=== PATIENT | female | born 1985 | race Caucasian/White ===

== ENCOUNTER → 2016-11-26 | Outpatient (CLI) | payer OTHER ==
--- NOTE | 2016-11-27 08:39 | ECHOF ---
Referral Reason:R00.2 Palpitations MEASUREMENTS -------- HEIGHT: 165.1 cm WEIGHT: 77.1 kg BP: IVSd: 1.1 cm (0.6 - 1.1) LVIDd: 4.5 cm (3.9 - 5.3) LVPWd: 0.9 cm (0.6 - 1.1) IVSs: 1.3 cm LVIDs: 2.5 cm LVPWs: 1.6 cm Ao Diam: 2.9 cm (2.0 - 3.7) AV Cusp: 1.9 cm (1.5 - 2.6) LA Diam: 3.0 cm (2.7 - 3.8) MV EXCURSION: 15.523 mm (> 18.000) MV EF SLOPE: 120 mm/s (70 - 150) EPSS: 0.3 cm MV E Milton: 0.70 m/s MV DecT: 123 ms MV A [place]: 0.90 m/s MV E/A Ratio: 0.79 RAP: 5.00 mmHg RVSP: 23.42 mmHg FINDINGS -------- Sinus rhythm. This was a technically good study. Left ventricular wall thickness is normal. Overall left ventricular systolic function is normal with, an EF between 55 - 60 %. The right ventricle is normal in size and function. The left atrium is normal in size. The right atrium is normal in size. The aortic valve is trileaflet, and appears structurally normal. No aortic stenosis or regurgitation. Mild mitral regurgitation is present. Mild tricuspid regurgitation present. The right ventricular systolic pressure, as measured by Doppler, is 23.42mmHg. Pulmonic valve appears structurally normal. The aortic root size is normal. The pericardium is normal. CONCLUSIONS -------- 1. Sinus rhythm. 2. Mild tricuspid regurgitation present. 3. The right ventricular systolic pressure, as measured by Doppler, is 23.42mmHg. 4. Pulmonic valve appears structurally normal. 5. The aortic root size is normal. 6. The pericardium is normal. 7. This was a technically good study. 8. Left ventricular wall thickness is normal. 9. Overall left ventricular systolic function is normal with, an EF between 55 - 60 %. 10. The right ventricle is normal in size and function. 11. The left atrium is normal in size. 12. The right atrium is normal in size. 13. The aortic valve is trileaflet, and appears structurally normal. No aortic stenosis or regurgitation. 14. Mild mitral regurgitation is present. RETAIL STORE CLERK: Ned Cadet RDCS
== END | disposition home or self-care (01) ==
LOC: RADECHMAIN 14:32
PROVIDERS: ATTEND Family Medicine
DX: I08.1 Rheumatic disorders of both mitral and tricuspid valves (principal)
CPT/HCPCS: 93306

== ENCOUNTER → 2017-12-06 | Outpatient (CLI) | payer OTHER ==
--- NOTE | 2017-12-06 14:06 | MR ---
EXAMINATION TYPE: MR angio head wo con DATE OF EXAM: 12/06/2017 COMPARISON: Prior MRA brain September 28, 2016 and older study May 18, 2016 HISTORY: Cerebral aneurysm TECHNIQUE: Time of flight images focusing on the [place] were performed without contrast.. 2-D and 3-D postprocessing imaging is performed. FINDINGS: There is persistent codominant vertebral basilar system. There is no significant focal sten osis or aneurysmal change in the posterior circulation. There are small caliber but patent posterior to indicating arteries redemonstrated bilaterally. Images of the anterior circulation redemonstrate focal aneurysm likely at anterior communicating fred ry origin measuring roughly 2.0 x 1.8 mm axial image 73 along the medial aspect of the right A1 segme nt. There is also aneurysmal prominence of the left anterior cerebral artery at this level measuring up to 2.6 mm axial image 76, this is not significantly changed in appearance from prior. Middle cereb ral artery show no aneurysmal change. No significant stenosis is present. IMPRESSION: Stable findings, suspect small aneurysm along course of short segment anterior communicat ing artery. Additional cylindrical prominence possible aneurysm of the left anterior cerebral artery near this level is felt present also stable.
== END | disposition home or self-care (01) ==
LOC: RADMRIMAIN 12:08
PROVIDERS: ATTEND Family Medicine
DX: I67.1 Cerebral aneurysm, nonruptured (principal)
CPT/HCPCS: 70544

== ENCOUNTER → 2019-11-22 | Outpatient (CLI) | payer OTHER ==
--- NOTE | 2019-11-22 09:02 | US ---
EXAMINATION TYPE: US abdomen limited DATE OF EXAM: 11/22/2019 COMPARISON: 07/13/2012 CLINICAL HISTORY: R10.11 R upper quad pain. RUQ pain, some nausea noted after evening meal EXAM MEASUREMENTS: Liver Length: 15.2 cm Gallbladder Wall: 0.1 cm CBD: 0.5 cm Right Kidney: 11.4 x 5.8 x 4.1 cm Pancreas: wnl Liver: hyperechoic, oval, solid focus noted in right lobe = 1.5 x 1.4 x 1.2cm and suggests hemangiom a Gallbladder: wnl Evidence for sonographic Magallon's sign: no CBD: wnl Right Kidney: wnl IMPRESSION: 1. No sonographic evidence of cholelithiasis nor acute cholecystitis. 2. Solitary 1.5 cm hepatic lesion demonstrates no interval growth from the ultrasound of 2012 compati ble with a benign hemangioma.
== END | disposition home or self-care (01) ==
LOC: RADUSWWP 07:03
PROVIDERS: ATTEND Family Medicine
DX: K76.9 Liver disease, unspecified (principal)
CPT/HCPCS: 76705

== ENCOUNTER → 2019-11-29 | Outpatient (CLI) | payer OTHER ==
--- NOTE | 2019-11-29 08:46 | MR ---
EXAMINATION TYPE: MR angio head wo con DATE OF EXAM: 11/29/2019 COMPARISON: MRA head dated 12/06/2017 HISTORY: Recheck cerebral aneurysm TECHNIQUE: Time of flight images focusing on the [place] were performed without contrast.. 2-D and 3-D postprocessing imaging is performed. FINDINGS: Vertebral arteries are codominant. Vertebrobasilar system is patent and unremarkable. No si gnificant focal stenosis or aneurysmal change in the posterior circulation. Posterior communicating a rtery is are patent bilaterally. 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 There is also unchanged promin ence of the distal left A1 segment as it meets the intercommunicating artery measuring 2.6 cm on imag e 83. Anterior cerebral arteries and middle cerebral arteries are otherwise unremarkable. 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
== END | disposition home or self-care (01) ==
LOC: RADMRIMAIN 06:57
PROVIDERS: ATTEND Family Medicine
DX: I67.1 Cerebral aneurysm, nonruptured (principal)
CPT/HCPCS: 70544

== ENCOUNTER → 2020-12-12 | Outpatient (CLI) | payer OTHER ==
--- NOTE | 2020-12-12 11:41 | MR ---
EXAMINATION TYPE: MR brain wo/w con DATE OF EXAM: 12/12/2020 COMPARISON: 05/18/2016 HISTORY: Migraines / Recheck Aneurysm TECHNIQUE: Multiplanar, multisequence images of the brain and brainstem is performed without and with IV contras t, utilizing 9 mL intravenous Gadavist . FINDINGS: Diffusion weighted images demonstrate no evidence of a recent infarct or other diffusion ab normality. There is no extra-axial fluid collection or significant white matter signal abnormality. The ventricular system and cisternal spaces are normal in size and appearance. The brain volume is age appropriate. Midline structures demonstrate normal morphology. The craniocervical junction appears within normal limits. Post contrast images demonstrate no abnormal enhancement. The dural venous sinuses appear pa tent. Changes of chronic sinusitis and nasal septal deviation noted. Orbits are symmetric. Prominent signal void corresponds the patient's history of anterior communicating artery aneurysm. There is a 7 mm posterior nasopharyngeal nodule paramedian to the left. IMPRESSION: 1. Prominent signal void anterior communicating artery compatible with the patient's history of aneur ysm. 2. Posterior nasopharyngeal nodule does not meet the criteria of a simple cyst and could be correlate d with ENT.
== END | disposition home or self-care (01) ==
LOC: RADMRIMAIN 09:30
PROVIDERS: ATTEND Family Medicine
DX: G43.909 Migraine, unspecified, not intractable, without status migrainosus (principal)
CPT/HCPCS: 70553

== ENCOUNTER → 2020-12-12 | Outpatient (CLI) | payer OTHER ==
[2020-12-12 19:22] LABS: Basophils # (A) 0.06 X 10*3/uL (0.00-0.10); Basophils % (A) 0.9 %; Eosinophils % (A) 1.4 %; HCT 44.5 % (37.2-46.3); HGB 14.6 g/dL (12.0-15.0); Lymphocytes % (A) 34.2 %; MCH 29.6 pg (27.0-32.0); MCHC 32.8 g/dL (32.0-37.0); MCV 90.3 fL (80.0-97.0); Mean Platelet Volume 10.5 fL (9.5-12.2); Monocytes # (A) 0.56 X 10*3/uL (0.20-1.00); Neutrophils # (A) 3.88 X 10*3/uL (1.80-7.70); Neutrophils % (A) 55.2 %; Platelet Count 356 X 10*3/uL (140-440); RBC 4.93 X 10*6/uL (4.10-5.20); RDW 12.7 % (11.5-14.5); WBC 7.02 X 10*3/uL (4.50-10.00)
[2020-12-12 19:45] LABS: Anion Gap 5.1 mmol/L (4.00-12.00); BUN/Creat Ratio 17.14 Ratio (12.00-20.00); Calcium 9.4 mg/dL (8.7-10.3); Carbon Dioxide 26.9 mmol/L (21.6-31.8); Chol/HDL Ratio 3.11; Potassium 4.6 mmol/L (3.5-5.5)
[2020-12-12 20:17] LABS: Hemoglobin A1C 4.5 % (4.0-6.0)
== END | disposition home or self-care (01) ==
LOC: LABWHC1 10:59
PROVIDERS: ATTEND Family Medicine
DX: Z00.00 Encounter for general adult medical examination without abnormal findings (principal); Z20.822 Contact with and (suspected) exposure to COVID-19; E66.9 Obesity, unspecified
CPT/HCPCS: 36415; 80048; 80061; 82306; 83036; 84439; 84443; 84450; 84460; 85025; 86769

== ENCOUNTER → 2020-12-12 | Outpatient (CLI) | payer OTHER ==
--- NOTE | 2020-12-12 11:33 | MR ---
EXAMINATION TYPE: MR angio head wo/w con DATE OF EXAM: 12/12/2020 COMPARISON: 11/29/2019 HISTORY: Migraines / Recheck Aneurysm TECHNIQUE: Time of flight images focusing on the [place] were performed utilizing 9 mL intra venous Gadavist gadolinium contrast. FINDINGS: Vertebral arteries are codominant. Vertebrobasilar system is patent and unremarkable. No significant focal stenosis or aneurysmal change in the posterior circulation. Posterior communicating artery is a re patent bilaterally. saccular aneurysm of the anterior communicating artery measures approximately 2.1 x 2.0 mm, similar t o prior measurements of 2.0 x 1.8 mm. There is also unchanged prominence of the distal left A1 segmen t as it meets the intercommunicating artery measuring 2.6 cm . Anterior cerebral arteries and middle cerebral arteries are otherwise unremarkable. Limited imaging of the neck demonstrates the visualized vertebral arteries to be symmetric in the visualized common carotid arteries to be patent. Assessmen t of the bifurcation of the carotid arteries is nondiagnostic. IMPRESSION: 1. 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 2. There is a 6 mm nasopharyngeal nodule paramedian to the left recommend ENT consultation.
== END | disposition home or self-care (01) ==
LOC: RADMRIMAIN 09:36
PROVIDERS: ATTEND Neurological Surgery
DX: I67.1 Cerebral aneurysm, nonruptured (principal); R22.9 Localized swelling, mass and lump, unspecified
CPT/HCPCS: 70546; A9585

== ENCOUNTER → 2022-11-12 | Outpatient (CLI) | payer OTHER ==
--- NOTE | 2022-11-13 04:43 | MR ---
EXAMINATION TYPE: MR angio head wo/w con DATE OF EXAM: 11/12/2022 COMPARISON: 12/12/2020 HISTORY: Aneurysm follow up. CONTRAST: Standard multiplanar, multisequence MRI departmental protocol images were obtained without contrast a nd with 9.5 mL intravenous Gadavist gadolinium contrast. There is arterial flow in the anterior middle and posterior cerebral arteries bilaterally. There is a rterial flow in the vertebrobasilar artery system. There is arterial flow in both distal internal car otid arteries. There is minimal fusiform ectasia of the left anterior cerebral artery distal to the a nterior communicating artery. I do not see a definite aneurysm. No mass effect. No evidence of hemody namic arterial stenosis. IMPRESSION: Ectasia of the left anterior cerebral artery compared to the right that is distal to the anterior com municating artery. This appears unchanged compared to old exam. No aneurysm seen..
--- NOTE | 2022-11-13 04:46 | MR ---
EXAMINATION TYPE: MR brain wo/w con DATE OF EXAM: 11/12/2022 COMPARISON: 12/12/2020 HISTORY: Aneurysm follow up. CONTRAST: Standard multiplanar, multisequence MRI departmental protocol images were obtained without contrast a nd with 9.5 mL intravenous Gadavist gadolinium contrast. Ventricles have normal size. There is no mass effect or midline shift. No sign of intracranial hemorr jimenez. The davila-white matter structures have normal signal pattern. No evidence of cerebral edema. Dif fusion images show no evidence of an acute infarct. The brainstem is intact. Cerebellum is intact. No evidence of orbital mass. Corpus callosum appears normal. Sella turcica is normal. The contrast images show no pathologic enhancement there is normal enhancement of the venous sinuses. IMPRESSION: Normal MR scan of the brain. No change.
== END | disposition home or self-care (01) ==
LOC: RADMRIMAIN 18:30
PROVIDERS: ATTEND Family Medicine
DX: I67.1 Cerebral aneurysm, nonruptured (principal)
CPT/HCPCS: 70546; 70553; A9585

== ENCOUNTER → 2023-02-23 | Outpatient (CLI) | payer OTHER ==
[2023-02-23 15:46] LABS: Appearance,Urine Clear (Clear); Bilirubin,Urine Negative (Negative); Blood,Urine Negative (Negative); Color,Urine Yellow (Yellow); Ketones,Urine Negative (Negative); Nitrite,Urine Negative (Negative); PH, Urine 7.5 (5.0-8.0); Specific Gravity,Urine 1.009 (1.001-1.030); Urobilinogen,Urine 0.2 (0.2,1.0)
[2023-02-23 15:47] LABS: Basophils # (A) 0.08 X 10*3/uL (0.00-0.10); Eosinophils # (A) 0.09 X 10*3/uL (0.04-0.35); Eosinophils % (A) 1.1 %; HCT 46.5 % (37.2-46.3); HGB 15.3 g/dL (12.0-15.0); Immature Grans, Automated 0.2 %; Lymphocytes # (A) 3.06 X 10*3/uL (0.90-5.00); MCH 29.5 pg (27.0-32.0); MCHC 32.9 g/dL (32.0-37.0); MCV 89.6 fL (80.0-97.0); Mean Platelet Volume 10.1 fL (9.5-12.2); Monocytes # (A) 0.55 X 10*3/uL (0.20-1.00); Monocytes % (A) 6.7 %; NRBC Per 100 WBC 0 /100 WBCS (0.0-0.0); Neutrophils # (A) 4.46 X 10*3/uL (1.80-7.70); Platelet Count 402 X 10*3/uL (140-440); RBC 5.19 X 10*6/uL (4.10-5.20); RDW 12.3 % (11.5-14.5); WBC 8.26 X 10*3/uL (4.50-10.00)
[2023-02-23 16:09] LABS: ALT 16 U/L (8-44); AST 14 U/L (13-35); African American GFR (CKD) 135.9 (60.0-200.0); Albumin/Globulin Ratio 1.85 (1.60-3.17); Alkaline Phosphatase 109 U/L (41-126); Blood Urea Nitrogen 7.5 mg/dL (9.0-27.0); Calcium 9.8 mg/dL (8.7-10.3); Carbon Dioxide 23.5 mmol/L (20.0-27.5); Chloride 104 mmol/L (96-109); Chol/HDL Ratio 3.28 Ratio; Follicle Stimulating Hormone 6.1 mIU/mL; Globulin 2.7 g/dL (1.6-3.3); Glucose 84 mg/dL (70-110); LDL Cholesterol,Calculated 114.6 mg/dL (0.0-131.0); Luteinizing Hormone 4.4 mIU/mL; Non-African American GFR(CKD) 117.3 (60.0-200.0); Potassium 4.4 mmol/L (3.5-5.5); Sodium 140 mmol/L (135-145); Total Protein 7.7 g/dL (6.2-8.2)
[2023-02-23 16:25] LABS: Estradiol 55.7 pg/mL
== END | disposition home or self-care (01) ==
LOC: LABWHC1 09:24
PROVIDERS: ATTEND Family Medicine
DX: Z00.00 Encounter for general adult medical examination without abnormal findings (principal); R23.2 Flushing
CPT/HCPCS: 36415; 80053; 80061; 81003; 82306; 82670; 83001; 83002; 83036; 84144; 84146; 84402; 84403; 84443; 85025

== ENCOUNTER → 2024-03-28 | Outpatient (CLI) | payer OTHER ==
[2024-03-28 18:28] LABS: Basophils # (A) 0.06 X 10*3/uL (0.00-0.10); Basophils % (A) 0.8 %; Eosinophils # (A) 0.05 X 10*3/uL (0.04-0.35); Eosinophils % (A) 0.6 %; HCT 44.1 % (37.2-46.3); HGB 14.8 g/dL (12.0-15.0); Lymphocytes # (A) 2.75 X 10*3/uL (0.90-5.00); Lymphocytes % (A) 34.4 %; MCH 29.6 pg (27.0-32.0); MCHC 33.6 g/dL (32.0-37.0); MCV 88.2 FL (80.0-97.0); Mean Platelet Volume 10.4 FL (9.5-12.2); Monocytes # (A) 0.56 X 10*3/uL (0.20-1.00); NRBC Per 100 WBC 0 X 10*3/uL (0.00-0.01); Neutrophils # (A) 4.55 X 10*3/uL (1.80-7.70); Neutrophils % (A) 56.9 %; Platelet Count 381 X 10*3/uL (140-440); RDW 12.8 % (11.5-14.5); WBC 7.99 X 10*3/uL (4.50-10.00)
[2024-03-28 19:46] LABS: ALT 12 U/L (8-44); AST 14 U/L (13-35); Albumin 4.7 g/dL (3.8-4.9); Albumin/Globulin Ratio 1.81 Ratio (1.60-3.17); Alkaline Phosphatase 90 U/L (41-126); Amylase 35 U/L (23-121); Blood Urea Nitrogen 8.9 mg/dL (9.0-27.0); Calcium 9.8 mg/dL (8.7-10.3); Carbon Dioxide 21.9 mmol/L (21.6-31.8); Chloride 106 mmol/L (96-109); Chol/HDL Ratio 2.92 Ratio; Globulin 2.6 g/dL (1.6-3.3); Glucose 86 mg/dL (70-110); Lipase 31 U/L (14-63); Potassium 4.2 mmol/L (3.5-5.5); Sodium 141 mmol/L (135-145); Total Bilirubin 0.5 mg/dL (0.3-1.2); Total Protein 7.3 g/dL (6.2-8.2)
== END | disposition home or self-care (01) ==
LOC: LABWHC1 13:06
PROVIDERS: ATTEND Physician Assistant
DX: Z00.00 Encounter for general adult medical examination without abnormal findings (principal); R10.13 Epigastric pain
CPT/HCPCS: 36415; 80053; 80061; 82150; 82306; 83013; 83036; 83690; 84443; 85025

== ENCOUNTER → 2024-03-29 | Outpatient (CLI) | payer OTHER ==
--- NOTE | 2024-03-29 11:45 | US ---
EXAMINATION TYPE: US abdomen complete DATE OF EXAM: 03/29/2024 COMPARISON: US 2019 CLINICAL INDICATION: Female, 38 years old with history of R10.13 EPIGASTRIC PAIN; Epigastric pain x a few months. TECHNIQUE: Multiple sonographic images of the abdomen are obtained. FINDINGS: EXAM MEASUREMENTS: Liver Length: 17.2 cm Gallbladder Wall: 0.23 cm CBD: 0.44 cm Spleen: 9.9 cm Right Kidney: 11.8 x 5.6 x 4.4 cm Left Kidney: 12.7 x 6.1 x 6.1 cm FREIGHT SEPARATOR NOTES: Exam is limited due to gas. Pancreas: Limited visibility of head and tail. Liver: Measures upper limits. Coarse in echotexture. *Hyperechoic area seen within the right lobe: 2 .1 x 1.4 x 0.8 cm. Gallbladder: Multiple folds seen. Evidence for sonographic Magallon's sign: No CBD: Appears wnl Spleen: Appears wnl Right Kidney: No hydronephrosis or masses seen Left Kidney: Slightly enlarged?. No hydronephrosis or masses seen Upper IVC: Appears wnl Abd Aorta: Appears wnl IMPRESSION: 1. Mild hepatomegaly. 2. Normal gallbladder and biliary tree. 3. 2 cm hyperechoic focus in the right lobe of the liver, seen previously and consistent with a benig n hemangioma. 4. Unremarkable kidneys and spleen.
== END | disposition home or self-care (01) ==
LOC: RADUSWWP 07:53
PROVIDERS: ATTEND Family Medicine
DX: R16.0 Hepatomegaly, not elsewhere classified (principal); D18.03 Hemangioma of intra-abdominal structures
CPT/HCPCS: 76700

== ENCOUNTER → 2024-04-20 | Outpatient (CLI) | payer OTHER ==
[2024-04-20 18:12] LABS: Basophils # (A) 0.07 X 10*3/uL (0.00-0.10); Basophils % (A) 0.8 %; Eosinophils # (A) 0.08 X 10*3/uL (0.04-0.35); HCT 45.5 % (37.2-46.3); HGB 15.1 g/dL (12.0-15.0); Lymphocytes # (A) 2.91 X 10*3/uL (0.90-5.00); Lymphocytes % (A) 34.6 %; MCH 29.3 pg (27.0-32.0); MCHC 33.2 g/dL (32.0-37.0); MCV 88.2 FL (80.0-97.0); Mean Platelet Volume 10.2 FL (9.5-12.2); Monocytes # (A) 0.52 X 10*3/uL (0.20-1.00); Monocytes % (A) 6.2 %; NRBC Per 100 WBC 0 X 10*3/uL (0.00-0.01); Neutrophils # (A) 4.81 X 10*3/uL (1.80-7.70); Platelet Count 376 X 10*3/uL (140-440); RBC 5.16 X 10*6/uL (4.10-5.20); RDW 12.8 % (11.5-14.5); WBC 8.42 X 10*3/uL (4.50-10.00)
[2024-04-20 18:24] LABS: ALT 12 U/L (8-44); AST 15 U/L (13-35); Albumin 4.9 g/dL (3.8-4.9); Albumin/Globulin Ratio 1.81 Ratio (1.60-3.17); Alkaline Phosphatase 92 U/L (41-126); Blood Urea Nitrogen 9.8 mg/dL (9.0-27.0); C Reactive Protein <0.30 mg/dL (0.00-0.80); Calcium 9.9 mg/dL (8.7-10.3); Carbon Dioxide 23.9 mmol/L (21.6-31.8); Chloride 105 mmol/L (96-109); Globulin 2.7 g/dL (1.6-3.3); Glucose 82 mg/dL (70-110); Potassium 4.5 mmol/L (3.5-5.5); Sodium 141 mmol/L (135-145); Total Bilirubin 0.3 mg/dL (0.3-1.2); Total Protein 7.6 g/dL (6.2-8.2)
[2024-04-20 18:30] LABS: Erythrocyte Sedimentation Rate 11 mm/Hr (0-20)
[2024-04-20 21:07] LABS: Gliadin AB IgA, Deaminated Negative (Negative); Gliadin AB IgG, Deaminated Negative (Negative); Gliadin AB IgG, Unit <0.4 U/mL
== END | disposition home or self-care (01) ==
LOC: LABWHC1 12:52
PROVIDERS: ATTEND Nurse Practitioner Family
DX: K52.9 Noninfective gastroenteritis and colitis, unspecified (principal)
CPT/HCPCS: 36415; 80053; 83516; 85025; 85652; 86140